=== PATIENT | female | born 1960 | race Caucasian/White ===

== ENCOUNTER 2022-12-16 08:13 | Day surgery (SDC) | payer OTHER ==
[2022-12-14 16:01] LABS: Potassium 4.2 mEq/L (3.5-5.1)
--- NOTE | 2022-12-15 14:56 | EKG ---
Test Date: 2022-12-14 Test Time: 15:17:36 Auditing Coder: DAREN MEASUREMENT RESULTS: Intervals: Rate: 80 VT: 178 QRSD: 80 QT: 378 QTc: 435 [place]: P: 41 VT: 178 QRS: 2 T: 127 INTERPRETIVE STATEMENTS: Normal sinus rhythm Nonspecific ST and T wave abnormality Abnormal ECG Compared to ECG 05/02/2009 18:23:08 ST (T wave) deviation now present Electronically Signed On 12-15-22 14:54:07 CDT by Alvin Diaz
[2022-12-16] MEDS ORDERED: LIDOCAINE 1% MPF 30 ML VIAL ONE (09:04)
[2022-12-16] MEDS ORDERED: propofoL 200 MG/20 ML VIAL IV ONE (09:04)
[2022-12-16] MEDS ORDERED: GLYCOPYRROLATE 0.2 MG/ML SYR ONE (09:04)
[2022-12-16] MEDS ORDERED: NA CHLORIDE 0.9% 1,000 ML ONE (09:24)
[2022-12-16] MEDS: LABETALOL 20 MG/4ML SYRINGE IV PRN ×2 (13:40→14:00)
[2022-12-16 13:51] VITALS: TEMP 97.2; O2SAT 100
[2022-12-16 14:57] VITALS: BP 219/88
== END 2022-12-16 14:45 | disposition home or self-care (01) ==
LOC: OR 08:13
PROVIDERS: ATTEND Surgery
PROC: 0DBN8ZX Excision of Sigmoid Colon, Via Natural or Artificial Opening Endoscopic, Diagnostic (ICD-10-PCS; 2022-12-16)
PROC: 0DBH8ZX Excision of Cecum, Via Natural or Artificial Opening Endoscopic, Diagnostic (ICD-10-PCS; principal; 2022-12-16 10:30)
DX: Z12.11 Encounter for screening for malignant neoplasm of colon (principal); K57.30 Diverticulosis of large intestine without perforation or abscess without bleeding; K64.8 Other hemorrhoids; D12.0 Benign neoplasm of cecum; D12.5 Benign neoplasm of sigmoid colon; I10 Essential (primary) hypertension; E11.9 Type 2 diabetes mellitus without complications; E78.00 Pure hypercholesterolemia, unspecified; N28.9 Disorder of kidney and ureter, unspecified
CPT/HCPCS: 45385; 93005; 80048; 36415; 82947 ×2; 88305; J2704; J2001; J7030